=== PATIENT | female | born 1980 | race Caucasian/White ===

== ENCOUNTER 2017-10-23 18:46 | Emergency (ER) | payer OTHER ==
[2017-10-23 18:53] VITALS: RESP 18
[2017-10-23] MEDS ORDERED: diphenhydrAMINE 50 MG/ML 1 ML VIAL IVP STA (18:59)
[2017-10-23] MEDS ORDERED: methylPREDNISolone SOD SUCCI 125 MG/2 ML VIAL IV STA (18:59)
[2017-10-23] MEDS ORDERED: SODIUM CHLORIDE 0.9% 500 ML IV ONE (18:59)
[2017-10-23] MEDS ORDERED: FAMOTIDINE 20 MG/2 ML VIAL IV STA (18:59)
--- NOTE | 2017-10-23 19:26 | ED ---
Allergic Reaction HPI - General Chief complaint: Allergic Reaction Stated complaint: Allergic Reaction Time Seen by Provider: 10/23/17 18:59 Source: patient, RN notes reviewed Mode of arrival: ambulatory Limitations: no limitations - History of Present Illness Initial Comments: 36-year-old female sent emergency Department chief complaint ALLERGIC reaction. Patient states that she was given Flagyl for bacterial vaginosis states that they told her that the generic name so she did not know what it was states that she filled it and states that approximately 20 minutes after taking it she said flush her face burning in her hands and arm region. She states this is sitting reaction that she had when she took a before. Patient denies any difficulty breathing or difficulty swallowing at this time. She doesn't take any medications prior arrival. - Related Data Home Medications Medication Instructions Recorded Confirmed Phentermine HCl [Adipex-P] 37.5 mg PO QAM 09/03/15 10/23/17 Cetirizine HCl [Zyrtec] 10 mg PO DAILY 10/23/17 10/23/17 Fluconazole [Diflucan] 150 mg PO ONCE 10/23/17 10/23/17 Fluticasone Nasal [place] [Flonase 1 spray EA NOSTRIL DAILY 10/23/17 10/23/17 Nasal [place]] Ibuprofen [Motrin Ib] 400 mg PO Q6H PRN 10/23/17 10/23/17 Temazepam 30 mg PO HS PRN 10/23/17 10/23/17 Allergies Allergy/AdvReac Type Severity Reaction Status Date / Time codeine Allergy Unknown Verified 10/23/17 19:38 Childhood metronidazole [From Flagyl] Allergy Swelling Verified 10/23/17 19:38 Penicillins Allergy Unknown Verified 10/23/17 19:38 Childhood Review of Systems ROS Statement: Those systems with pertinent positive or pertinent negative responses have been documented in the HPI. ROS Other: All systems not noted in ROS Statement are negative. Past Medical History Additional Past Medical History / Comment(s): migraines, protein C deficiency History of Any Multi-Drug Resistant Organisms: None Reported Past Surgical History: Hysterectomy Past Anesthesia/Blood Transfusion Reactions: No Reported Reaction Past Psychological History: Depression Smoking Status: Current every day smoker Past Alcohol Use History: Occasional Past Drug Use History: None Reported General Exam Limitations: no limitations General appearance: alert, in no apparent distress Head exam: Present: atraumatic, normocephalic, normal inspection Eye exam: Present: normal appearance, PERRL, EOMI. Absent: scleral icterus, conjunctival injection, periorbital swelling ENT exam: Present: normal exam, mucous membranes moist Neck exam: Present: normal inspection. Absent: tenderness, meningismus, lymphadenopathy Respiratory exam: Present: normal lung sounds bilaterally. Absent: respiratory distress, wheezes, rales, rhonchi, stridor Cardiovascular Exam: Present: regular rate, normal rhythm, normal heart sounds. Absent: systolic murmur, diastolic murmur, rubs, gallop, clicks GI/Abdominal exam: Present: soft, normal bowel sounds. Absent: distended, tenderness, guarding, rebound, rigid Skin exam: Present: warm, dry, intact, normal color, urticaria. Absent: rash Course Vital Signs 10/23/17 18:49 Temperature 98.5 F Pulse Rate 88 Respiratory 18 Rate Blood Pressure 122/78 O2 Sat by Pulse 99 Oximetry - Reevaluation(s) Reevaluation #1: 10/23/17 20:48 Patient reevaluated and is symptom-free. Medical Decision Making - Medical Decision Making 36-year-old female presented for ALLERGIC reaction. Patient was given IV medications symptoms have resolved. Patient will be continued on Benadryl at home and will be given medications for Bactrim vaginal cyst at home. Return parameters were discussed. Disposition Clinical Impression: Allergic reaction, Bacterial vaginosis Disposition: HOME SELF-CARE Condition: Stable Instructions: Antibiotic Medication Allergy (ED) Additional Instructions: Please return to the Emergency Department if symptoms worsen or any other concerns. Is patient prescribed a controlled substance at d/c from ED?: No Referrals: Brain Gomez MD [Primary Care Provider] - 1-2 days
[2017-10-23 20:59] VITALS: BP 115/58; PULSE 70; TEMP 98.2
== END 2017-10-23 20:59 | disposition home or self-care (01) ==
LOC: EC 18:46
DX: L50.0 Allergic urticaria (principal); T37.3X5A Adverse effect of other antiprotozoal drugs, initial encounter; N76.0 Acute vaginitis; F17.200 Nicotine dependence, unspecified, uncomplicated; Z79.51 Long term (current) use of inhaled steroids; Z79.899 Other long term (current) drug therapy; Z88.0 Allergy status to penicillin; Z88.1 Allergy status to other antibiotic agents; Z88.5 Allergy status to narcotic agent; Z86.69 Personal history of other diseases of the nervous system and sense organs
CPT/HCPCS: 96361; 96374; 96375; 99283

== ENCOUNTER 2022-11-06 10:52 | Emergency (ER) | payer BC ==
[2022-11-06 11:01] VITALS: RESP 16
[2022-11-06] MEDS ORDERED: LIDOCAINE 1% INJ 10MG/ML (20 ML MDV) SQ ONE (13:33)
[2022-11-06] MEDS ORDERED: DIPH,PERTUS(ACELL)TETVAC-LF 0.5 ML VIAL IM ONE (13:33)
[2022-11-06] MEDS ORDERED: IBUPROFEN 600 MG STARTER PACK 4 TAB BTL PO STA (15:20)
--- NOTE | 2022-11-06 15:23 | ED ---
General Adult HPI - General Chief complaint: Skin/Abscess/Foreign Body Stated complaint: cyst Time Seen by Provider: 11/06/22 12:07 Source: patient Mode of arrival: ambulatory Limitations: no limitations - History of Present Illness Initial comments: 42-year-old female presents to the ED with a chief complaint of vaginal pain. Patient states for the past 2 weeks has had swelling and pain to her labia has increased in size. States that she was initially given antibiotics however notes that this did not provide relief. Presented again today to an urgent care who advised her to present to the ED for further evaluation. No other complaints. - Related Data Home Medications Medication Instructions Recorded Confirmed Phentermine HCl [Adipex-P] 37.5 mg PO QAM 09/03/15 10/23/17 Cetirizine HCl [Zyrtec] 10 mg PO DAILY 10/23/17 10/23/17 Fluconazole [Diflucan] 150 mg PO ONCE 10/23/17 10/23/17 Fluticasone Nasal [place] [Flonase 1 spray EA NOSTRIL DAILY 10/23/17 10/23/17 Nasal [place]] Ibuprofen [Motrin Ib] 400 mg PO Q6H PRN 10/23/17 10/23/17 Temazepam 30 mg PO HS PRN 10/23/17 10/23/17 Allergies Allergy/AdvReac Type Severity Reaction Status Date / Time ciprofloxacin [From Cipro] Allergy Rash/Hives Verified 11/06/22 11:02 codeine Allergy Unknown Verified 11/06/22 11:02 Childhood metronidazole [From Flagyl] Allergy Swelling Verified 11/06/22 11:02 Penicillins Allergy Unknown Verified 11/06/22 11:02 Childhood Review of Systems ROS Statement: Those systems with pertinent positive or pertinent negative responses have been documented in the HPI. ROS Other: All systems not noted in ROS Statement are negative. Past Medical History Additional Past Medical History / Comment(s): migraines, protein C deficiency History of Any Multi-Drug Resistant Organisms: None Reported Past Surgical History: Hysterectomy Past Anesthesia/Blood Transfusion Reactions: No Reported Reaction Past Psychological History: Depression Past Alcohol Use History: Occasional Past Drug Use History: None Reported General Exam Limitations: no limitations General appearance: alert, in no apparent distress Head exam: Present: atraumatic Eye exam: Present: normal appearance Respiratory exam: Present: normal lung sounds bilaterally Cardiovascular Exam: Present: regular rate, normal rhythm External exam: Present: other (4 x 3 cm area of swelling on the right labia consistent with Bartholin's cyst.) Neurological exam: Present: alert, oriented X3 Skin exam: Present: warm, dry Course Vital Signs 11/06/22 10:59 Temperature 98.7 F Pulse Rate 85 Respiratory 16 Rate Blood Pressure 122/82 O2 Sat by Pulse 98 Oximetry Procedures - Incision & Drainage Site: vulva/vagina Size (cm): 4 Anesthetic Used: lidocaine 1% Amount (mLs): 7 I&D Cleaning Method: Betadine Sterile Field Used?: Yes Scalpel Used: #11 Irrigation Performed?: Yes I&D Drainage Obtained: Pus, Blood, Serous Packing: Plain Culture Obtained?: No Patient Tolerated Procedure: well, no complications Medical Decision Making - Medical Decision Making Was pt. sent in by a medical professional or institution (, PA, CUSTOMER SUPPORT MANAGER, urgent care, hospital, or detention...) When possible be specific @ -Urgent care. Records from this facility showed that she is currently on clindamycin 300 mg. This facility also prescribed her Bactrim double strength. Did you speak to anyone other than the patient for history (EMS, parent, family, police, friend...)? What history was obtained from this source @ -No Did you review nursing and triage notes (agree or disagree)? Why? @ -I reviewed and agree with nursing and triage notes Were old charts reviewed (outside hosp., previous admission, EMS record, old EKG, old radiological studies, urgent care reports/EKG's, detention records)? Report findings @ -No old charts were reviewed Differential Diagnosis (chest pain, altered mental status, abdominal pain women, abdominal pain men, vaginal bleeding, weakness, fever, dyspnea, syncope, headache, dizziness, GI bleed, back pain, seizure, CVA, palpatations, mental health, musculoskeletal)? @ -Vulvitis, candidiasis, Bartholin's cyst. This is not meant to be an all- inclusive list. EKG interpreted by me (3pts min.). @ -None X-rays interpreted by me (1pt min.). @ -None done CT interpreted by me (1pt min.). @ -None done U/S interpreted by me (1pt. min.). @ -None done What testing was considered but not performed or refused? (CT, X-rays, U/S, labs)? Why? @ -None What meds were considered but not given or refused? Why? @ -None Did you discuss the management of the patient with other professionals (professionals i.e. , PA, CUSTOMER SUPPORT MANAGER, lab, RT, psych nurse, psychosocial rehabilitation counselor, solo musician, teacher, property officer, pillowcase cleaner)? Give summary @ -No Was smoking cessation discussed for >3mins.? @ -No Was critical care preformed (if so, how long)? @ -No Were there social determinants of health that impacted care today? How? (Homelessness, low income, unemployed, alcoholism, drug addiction, transportation, low edu. Level, literacy, decrease access to med. care, retirement, rehab)? @ -No Was there de-escalation of care discussed even if they declined (Discuss DNR or withdrawal of care, Hospice)? DNR status @ -No What co-morbidities impacted this encounter? (DM, HTN, Smoking, COPD, CAD, Cancer, CVA, ARF, Chemo, Hep., AIDS, mental health diagnosis, sleep apnea, morbid obesity)? @ -None Was patient admitted / discharged? Hospital course, mention meds given and route, prescriptions, significant lab abnormalities, going to OR and other pertinent info. @ -Discharged. Exam shows findings consistent with Bartholin's cyst. Incision and drainage performed. For further details please see procedure note. Patient are the on clindamycin. Advised to continue taking these antibiotics. Advised follow-up with PCP in the next few days for packing removal/repacking and eventual follow-up with LITHOGRAPHIC PRESS OPERATOR APPRENTICE. Charged home in stable condition. Discussed return precautions with patient who verbalizes agreement. Undiagnosed new problem with uncertain prognosis? @ -No Drug Therapy requiring intensive monitoring for toxicity (Heparin, Nitro, Insulin, Cardizem)? @ -No Were any procedures done? @ -Incision and drainage for further details please see procedure note Diagnosis/symptom? @ -Bartholin's cyst Acute, or Chronic, or Acute on Chronic? @ -default Uncomplicated (without systemic symptoms) or Complicated (systemic symptoms)? @ -Uncomplicated Side effects of treatment? @ -No Exacerbation, Progression, or Severe Exacerbation? @ -No Poses a threat to life or bodily function? How? (Chest pain, [place], [place], pneumonia, PE, COPD, DKA, ARF, appy, cholecystitis, CVA, Diverticulitis, Homicidal, Suicidal, threat to staff... and all critical care pts) @ -No Disposition Clinical Impression: Bartholin cyst Disposition: HOME SELF-CARE Condition: Poor Instructions (If sedation given, give patient instructions): Bartholin Cyst (ED), Abscess Incision and Drainage (DC) Additional Instructions: Please return to the Emergency Department if symptoms worsen or any other concerns. Continue the antibiotics that you were previously prescribed. Follow up with PCP and LITHOGRAPHIC PRESS OPERATOR APPRENTICE. Is patient prescribed a controlled substance at d/c from ED?: No Referrals: Brian Gomez MD [Primary Care Provider] - 1-2 days Time of Disposition: 15:23
[2022-11-06 15:35] VITALS: BP 124/82; PULSE 84; TEMP 98.2
== END 2022-11-06 15:49 | disposition home or self-care (01) ==
LOC: EC 10:52
DX: N75.0 Cyst of Bartholin's gland (principal); Z86.59 Personal history of other mental and behavioral disorders; Z88.8 Allergy status to other drugs, medicaments and biological substances; Z88.0 Allergy status to penicillin; Z88.5 Allergy status to narcotic agent
CPT/HCPCS: 99282; 56420; J2001

== ENCOUNTER → 2024-08-18 | Outpatient (CLI) | payer BC ==
--- NOTE | 2024-08-19 09:40 | MM ---
Reason for Exam: Screening (asymptomatic). Patient History: Menarche at age 14. First Full-Term at age 18. Left ovary removed at age 26. Right ovary removed at age 26. Hysterectomy at age 26. Postmenopausal. Other cancer, age 26. Risk Values: Carolyne 5 year model risk: 0.5%. NCI Lifetime model risk: 6.5%. Prior Study Comparison: No prior studies available for comparison. Tissue Density: The breasts are heterogeneously dense, which may obscure small masses. Findings: Analyzed By CAD. Mammotome biopsy clip in the right breast is present. There is oval 11 mm circumscribed mass UPPER outer aspect right breast approximately 8 cm distance from nipple. There is additional smaller nodularity extending towards the right axilla inferior aspect posterior to this 11 mm mass. Overall Assessment: Incomplete: need additional imaging evaluation, BI-RAD 0 Management: Diagnostic Breast Ultrasound of the right breast. Targeted ultrasound right breast. Patient should continue monthly self-breast exams. A clinical breast exam by your physician is recommended on an annual basis. This exam should not preclude additional follow-up of suspicious palpable abnormalities. Note on Carolyne scores and lifetime risk: 1. A Carolyne score greater than 3% is considered moderate risk. If this is the case, consider specialist referral to assess eligibility for a risk reducing agent. 2. If overall lifetime risk for the development of breast cancer is 20% or higher, the patient may qualify for future screening with alternating mammogram and breast MRI. [facility], , 08/19/2024 9:38 AM. Electronically signed and approved by: Refugio Aquino M.D.
== END | disposition home or self-care (01) ==
LOC: RADMAMWWP 06:57
PROVIDERS: ATTEND Ophthalmology
DX: Z12.31 Encounter for screening mammogram for malignant neoplasm of breast (principal); R92.333 Mammographic heterogeneous density, bilateral breasts; Z78.0 Asymptomatic menopausal state
CPT/HCPCS: 77063; 77067

== ENCOUNTER → 2024-08-20 | Outpatient (CLI) | payer BC ==
--- NOTE | 2024-08-20 11:22 | USB ---
Reason for Exam: Additional evaluation requested from abnormal screening. Patient History: Menarche at age 14. First Full-Term at age 18. Left ovary removed at age 26. Right ovary removed at age 26. Hysterectomy at age 26. Postmenopausal. Other cancer, age 26. Risk Values: Carolyne 5 year model risk: 0.5%. NCI Lifetime model risk: 6.5%. Technique: Method: Targeted. Doppler: Color. Patient Position: LPO. Prior Study Comparison: 08/18/2024 Bilateral MG 3D screening mammo w/cad, [facility]. Findings: The upper outer quadrant of the right breast, the axilla of the right breast and the retroareolar of the right breast were scanned. Targeted ultrasound. At 9:00 position 8 cm distance from nipple there is a 8 x 7 x 3 mm simple-appearing thin-walled cyst believed to correspond to the area of concern on recent mammogram. There is more prominent focal fibroglandular tissue subareolar level. Scanning the right axilla shows benign appearing lymph node. Overall Assessment: Probably benign, BI-RAD 3 Management: Diagnostic Mammogram of the right breast in 6 months. A clinical breast exam by your physician is recommended on an annual basis and results should be correlated with mammographic findings. This exam should not preclude additional follow-up of suspicious palpable abnormalities. Results were given to the patient verbally at the time of exam. [facility], , 08/20/2024 11:18 AM. Electronically signed and approved by: Refugio Aquino M.D.
== END | disposition home or self-care (01) ==
LOC: RADUSWWP 10:48
PROVIDERS: ATTEND Ophthalmology
DX: R92.8 Other abnormal and inconclusive findings on diagnostic imaging of breast (principal); Z78.0 Asymptomatic menopausal state

== ENCOUNTER 2024-10-30 05:47 | Emergency (ER) | payer BC ==
--- NOTE | 2024-10-30 06:17 | ED ---
General Adult HPI - General Chief complaint: Urogenital Stated complaint: Pelvic Pain Time Seen by Provider: 10/30/24 06:05 Source: patient, RN notes reviewed Mode of arrival: ambulatory - History of Present Illness Initial comments: 43-year-old female presenting to the emergency room with complaints of vaginal discomfort. Patient states that on Friday of last week she began to feel like she was developing a yeast infection with vaginal irritation and mild discharge. She picked up [id number] vaginal suppository that she used 2 times however the symptoms were not improving. She followed up with a primary doctor on Friday where she was prescribed fluconazole and took 1 tablet however was concerned that she possibly had an allergic reaction to this as her labia majora became erythematous and edematous. Patient went to urgent care on where a complete STD panel and urinalysis was completed and patient was instructed to follow-up with shear operator helper. She endorses dysuria due to vaginal irritation. Denies vaginal discharge, flank pain, abdominal pain, nausea, vomiting, fevers or chills. She denies use of new soaps, lotions, detergents, clothing. States that she has used the [id number] suppository in the past. - Related Data Home Medications Medication Instructions Recorded Confirmed Phentermine HCl [Adipex-P] 37.5 mg PO QAM 09/03/15 10/23/17 Cetirizine HCl [Zyrtec] 10 mg PO DAILY 10/23/17 10/23/17 Fluconazole [Diflucan] 150 mg PO ONCE 10/23/17 10/23/17 Fluticasone Nasal [place] [Flonase 1 spray EA NOSTRIL DAILY 10/23/17 10/23/17 Nasal [place]] Ibuprofen [Motrin Ib] 400 mg PO Q6H PRN 10/23/17 10/23/17 Temazepam 30 mg PO HS PRN 10/23/17 10/23/17 Previous Rx's Medication Instructions Recorded clindamycin HCL 300 mg PO BID #14 cap 10/30/24 Allergies Allergy/AdvReac Type Severity Reaction Status Date / Time ciprofloxacin [From Cipro] Allergy Rash/Hives Verified 10/30/24 05:52 codeine Allergy Unknown Verified 10/30/24 05:52 Childhood metronidazole [From Flagyl] Allergy Swelling Verified 10/30/24 05:52 Penicillins Allergy Unknown Verified 10/30/24 05:52 Childhood Review of Systems ROS Statement: Those systems with pertinent positive or pertinent negative responses have been documented in the HPI. ROS Other: All systems not noted in ROS Statement are negative. Past Medical History Additional Past Medical History / Comment(s): migraines, protein C deficiency History of Any Multi-Drug Resistant Organisms: None Reported Past Surgical History: Hysterectomy Past Anesthesia/Blood Transfusion Reactions: No Reported Reaction Past Psychological History: Depression Smoking Status: Former smoker Past Alcohol Use History: Occasional Past Drug Use History: None Reported General Exam General appearance: alert, in no apparent distress Neck exam: Present: normal inspection. Absent: tenderness, meningismus, lymphadenopathy Respiratory exam: Present: normal lung sounds bilaterally. Absent: respiratory distress, wheezes, rales, rhonchi, stridor Cardiovascular Exam: Present: regular rate, normal rhythm, normal heart sounds. Absent: systolic murmur, diastolic murmur, rubs, gallop, clicks GI/Abdominal exam: Present: soft, normal bowel sounds. Absent: distended, tenderness, guarding, rebound, rigid External exam: Present: erythema, swelling Speculum exam: Present: vaginal discharge By manual exam: Present: normal by manual exam. Absent: cervical motion tenderness, adnexal tenderness Extremities exam: Present: normal inspection, full ROM, normal capillary refill. Absent: tenderness, pedal edema, joint swelling, calf tenderness Back exam: Present: normal inspection. Absent: CVA tenderness (R), CVA tenderness (L) Course Vital Signs 10/30/24 05:49 Temperature 97.7 F Pulse Rate 93 Respiratory 17 Rate Blood Pressure 127/75 O2 Sat by Pulse 98 Oximetry Medical Decision Making - Medical Decision Making Was pt. sent in by a medical professional or institution (, PA, TRACK SERVICE WORKER, urgent care, hospital, or penitentiary...) When possible be specific @ -No Did you speak to anyone other than the patient for history (EMS, parent, family, police, friend...)? What history was obtained from this source @ -No Did you review nursing and triage notes (agree or disagree)? Why? @ -I reviewed and agree with nursing and triage notes Were old charts reviewed (outside hosp., previous admission, EMS record, old EKG, old radiological studies, urgent care reports/EKG's, penitentiary records)? Report findings @ -No old charts were reviewed Differential Diagnosis (chest pain, altered mental status, abdominal pain women, abdominal pain men, vaginal bleeding, weakness, fever, dyspnea, syncope, headache, dizziness, GI bleed, back pain, seizure, CVA, palpatations, mental health, musculoskeletal)? @ -Differential Abdominal Pain Women: Appendicitis, Cholecystitis, diverticulosis, ischemic bowel, pancreatitis, hepatitis, UTI, gastroenteritis, AAA, incarcerated hernia, bowel obstruction, constipation, inflammatory bowel, hepatitis, peptic ulcer disease, splenic infarction, perforated viscus, vulvitis, ovarian torsion, PID, kidney stone, placenta abruption, this is not meant to be an all-inclusive list EKG interpreted by me (3pts min.). @ -none X-rays interpreted by me (1pt min.). @ -None done CT interpreted by me (1pt min.). @ -None done U/S interpreted by me (1pt. min.). @ -None done What testing was considered but not performed or refused? (CT, X-rays, U/S, labs)? Why? @ -None What meds were considered but not given or refused? Why? @ -None Did you discuss the management of the patient with other professionals (professionals i.e. , PA, TRACK SERVICE WORKER, lab, RT, psych nurse, social media intern, military science teacher, teacher, [employer] officer, medical records manager)? Give summary @ -No Was smoking cessation discussed for >3mins.? @ -No Was critical care preformed (if so, how long)? @ -No Were there social determinants of health that impacted care today? How? (Homelessness, low income, unemployed, alcoholism, drug addiction, transportation, low edu. Level, literacy, decrease access to med. care, m[facility], rehab)? @ -No Was there de-escalation of care discussed even if they declined (Discuss DNR or withdrawal of care, Hospice)? DNR status @ -No What co-morbidities impacted this encounter? (DM, HTN, Smoking, COPD, CAD, Cancer, CVA, ARF, Chemo, Hep., AIDS, mental health diagnosis, sleep apnea, morbid obesity)? @ -None Was patient admitted / discharged? Hospital course, mention meds given and route, prescriptions, significant lab abnormalities, going to OR and other pertinent info. @ -Discharge. 43-year-old female presenting with vaginal discomfort. Pelvic examination completed with nursing staff at bedside to reveal a labia majora that is erythematous and mildly edematous. There is mild vaginal discharge with no signs of cervical motion tenderness. She was offered pain medication and was declined. Urinalysis reveals leukocytes, white cells, red cells, yeast and bacteria. Patient will be treated for vulvovaginitis with a topical steroid cream and alternative treatment for BV with clindamycin. She is provided with referral to shear operator helper to follow-up for further evaluation. Return parameters discussed. Patient's urine is also sent for culture. Case discussed with my attending Dr. Nevarez Undiagnosed new problem with uncertain prognosis? @ -No Drug Therapy requiring intensive monitoring for toxicity (Heparin, Nitro, Insulin, Cardizem)? @ -No Were any procedures done? @ -No Diagnosis/symptom? @ -vulvovaginitis Acute, or Chronic, or Acute on Chronic? @ -acute Uncomplicated (without systemic symptoms) or Complicated (systemic symptoms)? @ -uncomplicated Side effects of treatment? @ -No Exacerbation, Progression, or Severe Exacerbation? @ -No Poses a threat to life or bodily function? How? (Chest pain, [place], [place], pneumonia, PE, COPD, DKA, ARF, appy, cholecystitis, CVA, Diverticulitis, Homicidal, Suicidal, threat to staff... and all critical care pts) @ -No - Lab Data Lab Results 10/30/24 Range/Units 06:00 Urine Color Yellow Urine Appearance Clear (Clear) Urine pH 5.5 (5.0-8.0) Ur Specific [place] 1.023 (1.001-1.035) Urine Protein Trace H (Negative) Urine Glucose (UA) Negative (Negative) Urine Ketones Trace H (Negative) Urine Blood Moderate H (Negative) Urine Nitrite Negative (Negative) Urine Bilirubin Negative (Negative) Urine Urobilinogen 3.0 (<2.0) mg/dL Ur Leukocyte Esterase Moderate H (Negative) Urine RBC 13 H (0-5) /hpf Urine WBC 9 H (0-5) /hpf Ur Squamous Epith Cells 4 (0-4) /hpf Calcium Oxalate Crystal Rare H (None) /hpf Urine Bacteria Rare H (None) /hpf Hyaline Casts 16 H (0-2) /lpf Urine Mucus Moderate H (None) /hpf Urine Yeast (Budding) Rare H (None) /hpf Disposition Clinical Impression: Vulvovaginitis Disposition: HOME SELF-CARE Condition: Good Instructions (If sedation given, give patient instructions): Yeast Infection (ED) Additional Instructions: Please return to the Emergency Department if symptoms worsen or any other concerns. Prescriptions: clindamycin HCL 300 mg PO BID #14 cap Is patient prescribed a controlled substance at d/c from ED?: No Referrals: Shelly Addison MD [Primary Care Provider] - 1-2 days Harjeet Griffin MD [STAFF PHYSICIAN] - 1-2 days Time of Disposition: 07:01
[2024-10-30 06:55] LABS: Bacteria,Urine Rare /hpf; Bilirubin,Urine Negative (Negative); Blood,Urine Moderate (Negative); Budding Yeast,Urine Rare /hpf; Calcium Oxalate Crystals,Urine Rare /hpf; Color,Urine Yellow; Glucose,Urine (UA) Negative (Negative); Hyaline Casts,Urine 16 /lpf (0-2); Ketones,Urine Trace (Negative); Leukocyte Esterase,Urine Moderate (Negative); Mucus,Urine Moderate /hpf; Nitrite,Urine Negative (Negative); PH, Urine 5.5 (5.0-8.0); Protein,Urine Trace (Negative); RBC,Urine 13 /hpf (0-5); Specific Gravity,Urine 1.023 (1.001-1.035); Squamous Epithelial Cell,Urine 4 /hpf (0-4); Urobilinogen,Urine 3.0 mg/dL (<2.0); WBC,Urine 9 /hpf (0-5)
[2024-10-30] MEDS: TRIAMCINOLONE ACET 0.1% OINTMENT 15 GM TUBE TOPICAL SCH (07:27)
[2024-10-30 07:34] VITALS: BP 111/74; PULSE 78; RESP 16; TEMP 97.3
== END 2024-10-30 07:34 | disposition home or self-care (01) ==
LOC: EC 05:47
DX: N76.0 Acute vaginitis (principal); Z87.891 Personal history of nicotine dependence; Z88.0 Allergy status to penicillin; Z88.1 Allergy status to other antibiotic agents; Z88.5 Allergy status to narcotic agent
CPT/HCPCS: 81001; 99283